=== PATIENT | female | born 1970 | race African-American/Black ===

== ENCOUNTER 2017-08-08 18:44 | Inpatient (IN) | payer SELFPAY ==
[2017-08-08] VITALS (7 sets, daily range): BP systolic 122–145; BP diastolic 68–80; PULSE 71–82; RESP 18–20; TEMP 97.1–98.1; O2SAT 97–100
[~2017-08-08] VITALS: Ht 160 cm; Wt 98.9 kg
[~2017-08-08 18:44] MED LIST: AMINOPHYLLINE INJ 250 MG/10 ML VIAL IV ONE
[2017-08-08] MEDS ORDERED: SODIUM CHLORIDE 0.9% FLUSH 10 ML FLUSH IVF PRN (19:00)
[2017-08-08 19:26] LABS: AUTOMATED NEUTROPHIL # 3.1 TH/MM3 (1.8-7.7); BASOPHIL % 0.7 % (0.0-2.0); EOSINOPHIL # 0.1 TH/MM3 (0-0.4); EOSINOPHIL % 1.3 % (0.0-4.0); HEMATOCRIT 38.3 % (35.0-46.0); HEMOGLOBIN 12.4 GM/DL (11.6-15.3); LYMPH % 48.7 % (9.0-44.0); LYMPHOCYTE # 3.5 TH/MM3 (1.0-4.8); MEAN CELL VOLUME 79.3 FL (80.0-100.0); MEAN CORPUSCULAR HEMOGLOBIN 25.6 PG (27.0-34.0); MEAN CORPUSCULAR HGB CONC 32.3 % (32.0-36.0); MEAN PLATELET VOLUME 8.1 FL (7.0-11.0); MONO % 4.8 % (0.0-8.0); MONOCYTE # 0.3 TH/MM3 (0-0.9); NEUT % 44.5 % (16.0-70.0); PLATELET COUNT 226 TH/MM3 (150-450); RED BLOOD COUNT 4.82 MIL/MM3 (4.00-5.30); RED CELL DISTRIBUTION WIDTH 13.2 % (11.6-17.2)
[2017-08-08 19:35] LABS: CHLORIDE 106 MEQ/L (98-107); SODIUM (NA) 141 MEQ/L (136-145)
[2017-08-08 19:38] LABS: ALBUMIN 3.6 GM/DL (3.4-5.0); BICARBONATE 29.6 MEQ/L (21.0-32.0); CALCIUM 8.6 MG/DL (8.5-10.1)
[2017-08-08 19:39] LABS: BLOOD UREA NITROGEN 15 MG/DL (7-18); GLUCOSE,RANDOM 121 MG/DL (74-106)
[2017-08-08 19:42] LABS: ALT (GPT) 43 U/L (10-53); AST (GOT) 28 U/L (15-37); CREATININE 0.72 MG/DL (0.50-1.00); GLOMERULAR FILTRATION RATE 86 ML/MIN (>89)
[2017-08-08 19:43] LABS: TOTAL BILIRUBIN ADULT 0.2 MG/DL (0.2-1.0); TOTAL PROTEIN 7.5 GM/DL (6.4-8.2)
[2017-08-08 19:44] LABS: ALKALINE PHOSPHATASE 127 U/L (45-117)
[2017-08-08 19:46] LABS: TROPONIN I LESS THAN 0.02 NG/ML (0.02-0.05)
--- NOTE | 2017-08-08 20:03 | RADRPT ---
EXAM DATE/TIME: 08/08/2017 19:29 [facility] COMPARISON: No previous studies available for comparison. INDICATIONS : Chest pain and shortness of breath. MEDICAL HISTORY : Hypercholesterolemia. Stroke. Arthritis, AV malformation. SURGICAL HISTORY : Hysterectomy. Tonsillectomy. ENCOUNTER: Initial ACUITY: 1 day PAIN SCORE: 8/10 LOCATION: Bilateral chest FINDINGS: A single view of the chest demonstrates the lungs to be symmetrically aerated without evidence of mas s, infiltrate or effusion. The cardiomediastinal contours are unremarkable. Osseous structures are intact. CONCLUSION: No acute disease. Doe Schmitz MD on August 08, 2017 at 20:01 Board Certified Radiologist. This report was verified electronically.
--- NOTE | 2017-08-08 20:08 | PD ---
HPI Chief Complaint: Chest Pain Time Seen by Provider: 18:52 Travel History International Travel<30 days: No Contact w/Intl Traveler<30days: No Traveled to known affect area: No History of Present Illness HPI This is a 47-year-old female who presents to the emergency department with left- sided chest discomfort that feels sharp and stabbing radiating to the left arm and some numbness in her arm associated with shortness of breath and nausea. She says she's been feeling this intermittently over the past week but today is been constant and much more severe. She's also been having intermittent headaches over the past week. She says last time she had chest pain like this she was diagnosed with a bleed from an AVM. She does have a history of prediabetes, a [id number] smoking history and she says her father had 3 open heart surgeries and of a myocardial infarction and she thinks his first heart attack was when he was in his 40s. She's never had a stress test before. PFSH Past Medical History Arthritis: Yes High Cholesterol: Yes Cerebrovascular Accident: Yes Diminished Hearing: No Neurologic: Yes (A-V malformation) Tetanus Vaccination: Unknown Influenza Vaccination: Yes ?: Not Past Surgical History Hysterectomy: Yes Tonsillectomy: Yes Social History Alcohol Use: No Tobacco Use: No Substance Use: No Allergies-Medications (Allergen,Severity, Reaction): Coded Allergies: clindamycin (Verified Allergy, Severe, FACIAL SWELLING, 08/08/17) Reported Meds & Prescriptions Reported Meds & Active Scripts Active No Active Prescriptions or Reported Medications Review of Systems Except as stated in HPI: all other systems reviewed are Neg Physical Exam Narrative GENERAL:Well appearing, no acute distress SKIN: Focused skin assessment warm and dry. HEAD: Atraumatic. Normocephalic. EYES: Pupils equal and round. No injection or drainage. ENT: Moist mucous membranes NECK: Trachea midline. CARDIOVASCULAR: Regular rate and rhythm. No murmur appreciated. RESPIRATORY: Clear to auscultation. Breath sounds equal bilaterally. GASTROINTESTINAL: Abdomen soft, non-tender, nondistended. MUSCULOSKELETAL: No obvious deformities. NEUROLOGICAL: Awake and alert. No obvious cranial nerve deficits. Moving all extremities. PSYCHIATRIC: Appropriate mood and affect; insight and judgment normal. Data Data Last Documented VS Vital Signs Date Time Temp Pulse Resp B/P (MAP) Pulse Ox O2 Delivery O2 Flow Rate FiO2 1/6/18 20:52 74 18 125/72 (89) 99 Room Air 08/08/17 18:46 98.1 Orders Orders Electrocardiogram (08/08/17 18:58) Complete Blood Count With Diff (08/08/17 18:58) Comprehensive Metabolic Panel (08/08/17 18:58) Troponin I (08/08/17 18:58) Chest, Single Ap (08/08/17 18:58) Ecg Monitoring (08/08/17 18:58) Bilateral Bp Monitoring (08/08/17 18:58) Iv Access Insert/Monitor (08/08/17 18:58) Oximetry (08/08/17 18:58) Oxygen Administration (08/08/17 18:58) Sodium Chloride 0.9% Flush (Ns Flush) (08/08/17 19:00) Ct Brain W/O Iv Contrast(Rout) (08/08/17 ) Admit Order (Ed Use Only) (08/08/17 21:04) Labs Laboratory Tests Test 08/08/17 19:17 White Blood Count 7.0 TH/MM3 Red Blood Count 4.82 MIL/MM3 Hemoglobin 12.4 GM/DL Hematocrit 38.3 % Mean Corpuscular Volume 79.3 FL Mean Corpuscular Hemoglobin 25.6 PG Mean Corpuscular Hemoglobin Concent 32.3 % Red Cell Distribution Width 13.2 % Platelet Count 226 TH/MM3 Mean Platelet Volume 8.1 FL Neutrophils (%) (Auto) 44.5 % Lymphocytes (%) (Auto) 48.7 % Monocytes (%) (Auto) 4.8 % Eosinophils (%) (Auto) 1.3 % Basophils (%) (Auto) 0.7 % Neutrophils # (Auto) 3.1 TH/MM3 Lymphocytes # (Auto) 3.5 TH/MM3 Monocytes # (Auto) 0.3 TH/MM3 Eosinophils # (Auto) 0.1 TH/MM3 Basophils # (Auto) 0.0 TH/MM3 CBC Comment DIFF FINAL Differential Comment Blood Urea Nitrogen 15 MG/DL Creatinine 0.72 MG/DL Random Glucose 121 MG/DL Total Protein 7.5 GM/DL Albumin 3.6 GM/DL Calcium Level 8.6 MG/DL Alkaline Phosphatase 127 U/L Aspartate Amino Transf (AST/SGOT) 28 U/L Alanine Aminotransferase (ALT/SGPT) 43 U/L Total Bilirubin 0.2 MG/DL Sodium Level 141 MEQ/L Potassium Level 3.4 MEQ/L Chloride Level 106 MEQ/L Carbon Dioxide Level 29.6 MEQ/L Anion Gap 5 MEQ/L Estimat Glomerular Filtration Rate 86 ML/MIN Troponin I LESS THAN 0.02 NG/ML MDM Medical Decision Making Medical Screen Exam Complete: Yes Emergency Medical Condition: Yes Interpretation(s) EKG: Normal sinus rhythm with no ST changes No leukocytosis Mild hypokalemia Troponin is normal Last 24 hours Impressions Chest X-Ray 08/08/17 1858 Signed Impressions: Service Date/Time: Tuesday, August 08, 2017 19:29 - CONCLUSION: No acute disease. Doe Schmitz MD Head CT 08/08/17 0000 Signed Impressions: Service Date/Time: Tuesday, August 08, 2017 19:39 - CONCLUSION: No acute disease. Doe Schmitz MD Differential Diagnosis Acute coronary syndrome, costochondritis, pericarditis, anxiety, GERD, AVM Narrative Course This is a 47-year-old female who has a history of prediabetes, smoking and family history of heart disease who presents to the emergency department with left-sided chest discomfort that's been going on intermittently for the past week and more constant today. EKG is nonischemic. She was placed in a monitor and an IV was established. Labs are reassuring. Patient also had concerned because the last time she felt this way she said she had intracranial hemorrhage from an AVM. CT was obtained which is unremarkable. I think given the patient's risk factors it's reasonable to keep her in observation for serial cardiac enzymes and risk stratification. Diagnosis Primary Impression: Atypical chest pain Admitting Information Admitting Physician Requests: Observation Scripts No Active Prescriptions or Reported Meds Lashonda Borjas MD Aug 08, 2017 20:08
--- NOTE | 2017-08-08 20:31 | RADRPT ---
EXAM DATE/TIME: 08/08/2017 19:39 [facility] COMPARISON: No previous studies available for comparison. INDICATIONS : Cephalgia. Shortness of breath. Left shoulder pain. Headache RADIATION DOSE: 61.10 CTDIvol (mGy) MEDICAL HISTORY : None SURGICAL HISTORY : Hysterectomy. ENCOUNTER: Initial ACUITY: 1 day PAIN SCALE: 8/10 LOCATION: cranial TECHNIQUE: Multiple contiguous axial images were obtained of the head. Using automated exposure control and adj ustment of the mA and/or kV according to patient size, radiation dose was kept as low as reasonably a chievable to obtain optimal diagnostic quality images. DICOM format image data is available electro nically for review and comparison. FINDINGS: CEREBRUM: The ventricles are normal for age. No evidence of midline shift, mass lesion, hemorrhage or acute in farction. No extra-axial fluid collections are seen. POSTERIOR FOSSA: The cerebellum and brainstem are intact. The 4th ventricle is midline. The cerebellopontine angle i s unremarkable. EXTRACRANIAL: The visualized portion of the orbits is intact. SKULL: The calvaria is intact. No evidence of skull fracture. CONCLUSION: No acute disease. Doe Schmitz MD on August 08, 2017 at 20:28 Board Certified Radiologist. This report was verified electronically.
[2017-08-08] MEDS ORDERED: REGADENOSON INJ 0.4 MG/5 ML SYR IV ONE (21:06)
[2017-08-08] MEDS ORDERED: SODIUM CHLORIDE 0.9% FLUSH 10 ML FLUSH IV FLUSH PRN (23:00)
[2017-08-08] MEDS ORDERED: ASPIRIN 81 MG CHEW TAB CHEW ONE (23:00)
[2017-08-08] MEDS: SODIUM CHLORIDE 0.9% FLUSH 10 ML FLUSH IV FLUSH SCH (23:18)
[2017-08-09] VITALS (9 sets, daily range): BP systolic 105–123; BP diastolic 62–85; PULSE 63–80; RESP 15–20; TEMP 97.1–97.8; O2SAT 95–99
[2017-08-09] MEDS ORDERED: ACETAMINOPHEN 500 MG CPLT PO PRN (07:15)
[2017-08-09] MEDS ORDERED: ONDANSETRON HCL 4 MG/2 ML VIAL IV PUSH PRN (07:15)
[2017-08-09] MEDS ORDERED: NITROGLYCERIN 0.4 MG SL 25 TABS/BTL SL PRN (07:15)
[2017-08-09 07:42] LABS: BICARBONATE 27.7 MEQ/L (21.0-32.0); CALCIUM 8.3 MG/DL (8.5-10.1)
[2017-08-09 07:46] LABS: CREATININE 0.69 MG/DL (0.50-1.00)
[2017-08-09] MEDS: ASPIRIN 325 MG TAB PO SCH (09:00)
[2017-08-09] MEDS: SODIUM CHLORIDE 0.9% FLUSH 10 ML FLUSH IV FLUSH SCH ×2 (09:00→21:28)
[2017-08-09 09:21] LABS: CHOLESTEROL/ HDL RATIO 3.14 RATIO
--- NOTE | 2017-08-09 10:00 | HHI.HP ---
[facility] Angi Brian M.D. Admission Diagnosis chest pain Diagnoses: (1) Atypical chest pain Diagnosis: Principal Chief Complaint: Chest pain Travel History International Travel<30 Days: No Contact w/Intl Traveler <30 Da: No Traveled to Known Affected Are: No History of Present Illness This is a 47-year-old female with known history of hyperlipidemia, chronic arthritic pain, history of AVM with hemorrhagic CVA, Chiari I malformation, prediabetes who presented to hospital because of chest discomfort. Patient states that yesterday afternoon she started noticing a pressure type sensation in the middle part of her chest which she describes as a 5/10 on a pain scale which was continuous and continue to get worse. Patient states that it was same type of pain that she was having when she was diagnosed with her first AVM with CVA. Because of that reason she came to emergency department for evaluation. Patient does have chronic shoulder pain, chronic shortness of breath, so it was difficult for her to determine if her pain radiating to her shoulder or if she actually had worsening shortness of breath or dyspnea. However she had no diaphoresis, there was some mild nausea without any vomiting. Patient had workup done emergency department without any abnormality. The ER physician recommended the patient be observed in the chest pain center. Patient has not been given any medication to see if the pain would resolve. However the patient is asymptomatic at this time. 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 Father had first heart attack at age 50, had 3 bypass surgeries and at age 72 Social History Patient quit smoking 3 years ago, prior to that she smoked 2 pack a cigarettes a day since she was 15 years old. She uses alcohol rarely. Denies any illicit drug use Physical Exam Vital Signs Vital Signs Date Time Temp Pulse Resp B/P (MAP) Pulse Ox O2 Delivery O2 Flow Rate FiO2 08/09/17 08:28 97.5 63 15 111/64 (80) 99 08/09/17 07:30 98 21 08/09/17 04:00 97.1 63 20 112/62 (79) 97 08/09/17 00:00 97 21 08/08/17 23:00 97.1 79 20 127/70 (89) 97 08/08/17 22:53 74 18 98 08/08/17 22:13 72 18 126/68 (87) 99 Room Air 08/08/17 20:52 74 18 125/72 (89) 99 Room Air 08/08/17 19:27 76 18 99 Room Air 08/08/17 19:27 76 18 123/68 (86) 99 Room Air 08/08/17 19:25 71 123/68 (86) 122/75 (91) 08/08/17 19:00 100 Room Air 08/08/17 19:00 100 08/08/17 18:46 98.1 82 18 145/80 (101) 100 Physical Exam GENERAL: Well-developed, well-nourished, in no acute distress. alert and orientated HEENT: Head is normocephalic without any lesions or masses noted. Facial features are symmetric. Eyes: Pupils equal round reactive to light. Extraocular muscles are intact. Conjunctivae were clear. Oropharyngeal: Pharynx without any erythema edema. Tongue is midline without deviation. Buccal mucosa is moist without any masses or lesions NECK: Supple without any masses. Trachea midline no deviation. No JVD, no bruits are appreciated CARDIAC: Regular rhythm, regular rate. S1/S2 are heard. No murmurs gallops or rubs. LUNGS: Clear to auscultation bilaterally. No wheeze, rhonchi or rales. No use of accessory muscles on inspiration or expiration. ABDOMEN: Soft, nontender. Nondistended. Bowel sounds heard in all 4 quadrants. No organomegaly or masses. Negative rebound, negative guarding EXTREMITIES: No edema, pulses are equal bilaterally. No cyanosis or clubbing NEUROLOGY: Mood and affect appear appropriate. Cranial nerves II through XII grossly intact. Muscle strength 5/5 in upper and lower extremities bilaterally. Deep tendon reflexes are 2+ in upper and lower extremities bilaterally. Laboratory Laboratory Tests Test 08/08/17 19:17 08/09/17 00:00 08/09/17 02:25 08/09/17 07:26 White Blood Count 7.0 Red Blood Count 4.82 Hemoglobin 12.4 Hematocrit 38.3 Mean Corpuscular Volume 79.3 Mean Corpuscular Hemoglobin 25.6 Mean Corpuscular Hemoglobin Concent 32.3 Red Cell Distribution Width 13.2 Platelet Count 226 Mean Platelet Volume 8.1 Neutrophils (%) (Auto) 44.5 Lymphocytes (%) (Auto) 48.7 Monocytes (%) (Auto) 4.8 Eosinophils (%) (Auto) 1.3 Basophils (%) (Auto) 0.7 Neutrophils # (Auto) 3.1 Lymphocytes # (Auto) 3.5 Monocytes # (Auto) 0.3 Eosinophils # (Auto) 0.1 Basophils # (Auto) 0.0 CBC Comment DIFF FINAL Differential Comment Blood Urea Nitrogen 15 12 Creatinine 0.72 0.69 Random Glucose 121 94 Total Protein 7.5 Albumin 3.6 Calcium Level 8.6 8.3 Alkaline Phosphatase 127 Aspartate Amino Transf (AST/SGOT) 28 Alanine Aminotransferase (ALT/SGPT) 43 Total Bilirubin 0.2 Sodium Level 141 142 Potassium Level 3.4 3.8 Chloride Level 106 109 Carbon Dioxide Level 29.6 27.7 Anion Gap 5 5 Estimat Glomerular Filtration Rate 86 110 Troponin I LESS THAN 0.02 LESS THAN 0.02 LESS THAN 0.02 Triglycerides Level 54 Cholesterol Level 195 LDL Cholesterol 122 HDL Cholesterol 62.0 Cholesterol/HDL Ratio 3.14 Result Diagram: 08/08/177 08/09/17 0726 Imaging Last Impressions Chest X-Ray 08/08/17 1858 Signed Impressions: Service Date/Time: Tuesday, August 08, 2017 19:29 - CONCLUSION: No acute disease. Doe Schmitz MD Head CT 08/08/17 0000 Signed Impressions: Service Date/Time: Tuesday, August 08, 2017 19:39 - CONCLUSION: No acute disease. Doe F. Nadir, MD Caprini VTE Risk Assessment Caprini VTE Risk Assessment: No/Low Risk (score <= 1) Caprini Risk Assessment Model Point Value = 1 Point Value = 2 Point Value = 3 Point Value = 5 Age 41-60 Minor surgery BMI > 25 kg/m2 Swollen legs Varicose veins or History of unexplained or recurrent spontaneous Oral contraceptives or hormone replacement Sepsis (< 1 month) Serious lung disease, including pneumonia (< 1 month) Abnormal pulmonary function Acute myocardial infarction Congestive heart failure (< 1 month) History of inflammatory bowel disease Medical patient at bed rest Age 61-74 Arthroscopic surgery Major open surgery (> 45 min) Laparoscopic surgery (> 45 min) Malignancy Confined to bed (> 72 hours) Immobilizing plaster cast Central venous access Age >= 75 History of VTE Family history of VTE Factor V Leiden Prothrombin [id number] Lupus anticoagulant Anticardiolipin antibodies Elevated serum homocysteine Heparin-induced thrombocytopenia Other congenital or acquired thrombophilia Stroke (< 1 month) Elective arthroplasty Hip, pelvis, or leg fracture Acute spinal cord injury (< 1 month) Prophylaxis Regimen Total Risk Factor Score Risk Level Prophylaxis Regimen 0-1 Low Early ambulation 2 Moderate Order ONE of the following: *Sequential Compression Device (SCD) *Heparin 5000 units SQ BID 3-4 Higher Order ONE of the following medications: *Heparin 5000 units SQ TID *Enoxaparin/Lovenox 40 mg SQ daily (WT < 150 kg, CrCl > 30 mL/min) *Enoxaparin/Lovenox 30 mg SQ daily (WT < 150 kg, CrCl > 10-29 mL/min) *Enoxaparin/Lovenox 30 mg SQ BID (WT < 150 kg, CrCl > 30 mL/min) AND/OR *Sequential Compression Device (SCD) 5 or more Highest Order ONE of the following medications: *Heparin 5000 units SQ TID (Preferred with Epidurals) *Enoxaparin/Lovenox 40 mg SQ daily (WT < 150 kg, CrCl > 30 mL/min) *Enoxaparin/Lovenox 30 mg SQ daily (WT < 150 kg, CrCl > 10-29 mL/min) *Enoxaparin/Lovenox 30 mg SQ BID (WT < 150 kg, CrCl > 30 mL/min) AND *Sequential Compression Device (SCD) Assessment and Plan Assessment and Plan Chest pain, atypical Patient with increased risk factors to include history tobacco use, family history of heart disease, hyperlipidemia Patient had been ruled out for acute coronary event with serial cardiac enzymes that are negative Serial EKGs were performed which shows sinus rhythm without any changes Patient states that she is unable to perform exercise stress test due to previous CVA, feet problems Nuclear stress test does indicate reversible defect involving the cardiac apex suggesting LAD ischemia. Low risk, ejection fraction 60% Continue aspirin, nitroglycerin as needed Start Lopressor 12.5 mg every 12 hours Start Nitropaste half-inch every 6 hours Consult cardiology for recommendations, discussed with Dr. Santos to recommended patient be transferred to the [facility] for cardiac catheterization Did not recommend heparin at this time Hyperlipidemia LDL 122 Start Lipitor 20 mg daily DVT prevention sequential compression devices Randal Rausch Aug 09, 2017 10:00
--- NOTE | 2017-08-09 13:18 | RADRPT ---
EXAM DATE/TIME: 08/09/2017 11:36 [facility] COMPARISON: No previous studies available for comparison. INDICATIONS : Chest pain. Angina. DOSE: 27.3 mCi Tc99m Myoview at stress. 8.6 mCi Tc99m Myoview at rest. 0.4 mg Lexiscan STRESS SYMPTOMS: Dyspnea and headache. MEDICATIONS: 1.) 100 mg Aminophylline IV EJECTION FRACTION: 68% MEDICAL HISTORY : Cerebrovascular disease. Hypercholesterolemia. AVM. SURGICAL HISTORY : Tonsillectomy. Hysterectomy. ENCOUNTER: Initial ACUITY: 1 day PAIN SCALE: 0/10 LOCATION: Bilateral chest TECHNIQUE: The patient underwent pharmacologic stress with infusion of prescribed dose. Continuous ECG tracing was monitored during stress. Gated SPECT imaging was performed after stress and conventional SPECT i maging was performed at rest. The examination was performed on a SPECT/CT scanner, both attenuation and non-corrected datasets were reviewed. FINDINGS: The gated cineloop images demonstrate no focal wall motion on room air. Left ventricular ejection fra ction is calculated at 60%. There is evidence of reversible defect involving the cardiac apex suggesting ischemia in the LAD dist ribution. Clinical correlation is recommended. No fixed defects are noted. CONCLUSION: 1. Reversible defect involving the cardiac apex suggesting LAD ischemia. Clinical correlation is yossi mmended. 2. No fixed defect or wall motion abnormality. RISK CATEGORY: Low risk (less than 1% and mortality rate). Mal Musa MD on August 09, 2017 at 13:13 Board Certified Radiologist. This report was verified electronically.
--- NOTE | 2017-08-09 14:01 | EKG ---
Date Performed: 08/08/2017 Time Performed: 18:49:54 PTAGE: 47 years EKG: Sinus rhythm WITH SINUS ARRHYTHMIA NORMAL ECG NO PREVIOUS TRACING DOCTOR: Shayan Irvin Interpretating Date/Time 08/09/2017 14:00:49
--- NOTE | 2017-08-09 14:03 | EKG ---
Date Performed: 08/08/2017 Time Performed: 23:55:05 PTAGE: 47 years EKG: Marked baseline interference seen in leads I, II and V5 makes interpretation impossible in these leads Sinus rhythm present Recommend repeat tracing of better quality for better interpretation PREVIOUS TRACING : 08/08/2017 18.49 DOCTOR: Shayan Irvin Interpretating Date/Time 08/09/2017 14:02:44
--- NOTE | 2017-08-09 14:05 | EKG ---
Date Performed: 08/09/2017 Time Performed: 02:04:33 PTAGE: 47 years EKG: Sinus rhythm NORMAL ECG PREVIOUS TRACING : 08/08/2017 23.55 Compared to prior tracing no significant change DOCTOR: Shayan Irvin Interpretating Date/Time 08/09/2017 14:03:48
[2017-08-09] MEDS ORDERED: PILL SPLITTER OTHER PRN (14:15)
--- NOTE | 2017-08-09 14:42 | TR ---
Date Performed: 08/09/2017 Time Performed: 12:11:37 DOCTOR: Shayan Irvin DRUG LIST: CLINICAL HISTORY: REASON FOR TEST: REASON FOR ENDING: OBSERVATION: CONCLUSION: Lexiscan stress test was performed under standard four minute protocol. Radionuclid e was injected one minute prior to ending the test. No electrocardiographic abormalities were present to suggest ischemia. Nuclear imaging and interpretation are pending. COMMENTS:
[2017-08-09] MEDS: METOPROLOL TARTRATE 25 MG TAB PO SCH ×2 (16:07→21:28)
[2017-08-09] MEDS: NITROGLYCERIN 2% OINT 1 GM PACKET TOPICAL SCH ×3 (16:07→23:01)
[2017-08-09] MEDS: ACETAMINOPHEN/HYDROcodone 325 MG/7.5 MG TAB PO PRN (16:07)
[2017-08-09] MEDS ORDERED: ATORVASTATIN 20 MG TAB PO SCH (21:00)
[2017-08-10] VITALS (18 sets, daily range): BP systolic 88–114; BP diastolic 53–74; PULSE 56–72; RESP 16–20; TEMP 97.6–98; O2SAT 94–98
[2017-08-10] MEDS: ACETAMINOPHEN/HYDROcodone 325 MG/7.5 MG TAB PO PRN (00:13)
[2017-08-10] MEDS: NITROGLYCERIN 2% OINT 1 GM PACKET TOPICAL SCH ×3 (00:14→12:00)
[2017-08-10] MEDS: METOPROLOL TARTRATE 25 MG TAB PO SCH (09:00)
[2017-08-10] MEDS: SODIUM CHLORIDE 0.9% FLUSH 10 ML FLUSH IV FLUSH SCH (09:00)
[2017-08-10] MEDS ORDERED: HEPARIN-NS/PF INJ 1,000 ML ONE (09:00)
[2017-08-10] MEDS: ASPIRIN 325 MG TAB PO SCH (09:00)
[2017-08-10] MEDS ORDERED: MIDAZOLAM HCL 2 MG/2 ML VIAL ONE (09:01)
--- NOTE | 2017-08-10 09:12 | PD.CONS ---
HPI Consult Requested By Primary Care Physician Angi Brian M.D. History of Present Illness 47-year-old female with known history of hyperlipidemia, chronic arthritic pain , history of AVM with hemorrhagic CVA, Chiari I malformation, prediabetes who presented to hospital because of chest discomfort. Patient states that yesterday afternoon she started noticing a pressure type sensation in the middle part of her chest which she describes as a 5/10 on a pain scale which was continuous and continue to get worse. Patient does have chronic shoulder pain, chronic shortness of breath, so it was difficult for her to determine if her pain radiating to her shoulder or if she actually had worsening shortness of breath or dyspnea. She ruled out by cardiac markers. MPI was positive for ischemia in the LAD territory. Cardiology consulted for [facility]. Review of Systems Consitutional: DENIES: Fatigue, Fever, Chills, Weight gain, Weight loss Eyes: DENIES: Amaurosis Fugax, Change in vision HEENT: DENIES: Lightheadedness, Change in hearing Respiratory: DENIES: See HPI, Cough, Snoring, Shortness of breath, Wheezing, Sputum production Cardiovascular: COMPLAINS OF: See HPI, DENIES: Chest pain, Palpitations, Syncope, Tachycardia Gastrointestinal: DENIES: Nausea, Vomiting, Change in bowel habits, Reflux, Bloody stools, Melena Genitourinary: DENIES: Urinary incontinence, Difficulty voiding Integumentary: DENIES: Rash Neurologic: DENIES: Tingling or numbness, Memory problems, Poor Balance, Stroke symptoms Musculoskeletal: DENIES: Joint pain, Muscle pain, Limited range of motion, Back pain Psychiatric: DENIES: Anxiety, Depression, Sleep disturbances Hematologic: DENIES: Bruising tendencies, Bleeding tendencies Endocrine: DENIES: Weight gain, Weight loss, Thyroid disease Past Family Social History Allergies: Coded Allergies: clindamycin (Verified Allergy, Severe, FACIAL SWELLING, 08/08/17) Past Medical History Hyperlipidemia Chiari I malformation History of hemorrhagic CVA from AVM Past Surgical History Hysterectomy Carpal tunnel surgery Tarsal tunnel surgery Tennis elbow surgery Tonsillectomy Reported Medications Reported Meds & Active Scripts Active No Active Prescriptions or Reported Medications Active Ordered Medications Current Medications Medications (Trade) Dose Ordered Sig/Lela Route Start Time Stop Time Status Last Admin (NS Flush) 2 ml UNSCH PRN IV FLUSH 08/08/17 23:00 (NS Flush) 2 ml BID IV FLUSH 08/08/17 23:00 08/09/17 21:28 (Tylenol) 500 mg Q4H PRN PO 08/09/17 07:15 ([place] 7.5-325 Mg) 1 tab Q4H PRN PO 08/09/17 07:15 08/10/17 00:13 (Zofran Inj) 4 mg Q6H PRN IV PUSH 08/09/17 07:15 (Nitrostat Sl) 0.4 mg Q5M PRN SL 08/09/17 07:15 (Aspirin) 325 mg DAILY PO 08/09/17 09:00 (Lipitor) 20 mg HS PO 08/09/17 21:00 08/09/17 21:29 (Lopressor) 12.5 mg Q12HR PO 08/09/17 14:30 08/09/17 21:28 (Nitroglycerin 2% Oint) 0.5 inch Q6HR TOPICAL 08/09/17 14:30 08/10/17 00:14 (Pill Splitter) 1 ea UNSCH PRN OTHER 08/09/17 14:15 Family History Reviewed is significant for heart disease. Father had first heart attack at age 50, had 3 bypass surgeries and at age 72 Social History Patient quit smoking 3 years ago, prior to that she smoked 2 pack a cigarettes a day since she was 15 years old. She uses alcohol rarely. Denies any illicit drug use Physical Exam Vital Signs Vital Signs Date Time Temp Pulse Resp B/P (MAP) Pulse Ox O2 Delivery O2 Flow Rate FiO2 08/10/17 07:32 98.0 64 20 105/74 (84) 94 08/10/17 06:40 59 08/10/17 05:00 62 08/10/17 04:24 97.9 56 88/53 (65) 98 08/10/17 04:00 56 08/10/17 03:00 58 08/10/17 02:00 64 08/10/17 01:00 62 08/10/17 00:00 64 08/10/17 00:00 97.6 71 105/68 (80) 95 08/09/17 23:30 80 08/09/17 23:00 74 08/09/17 20:00 97.8 63 16 105/70 (82) 95 08/09/17 19:40 95 21 08/09/17 16:00 97.5 79 16 123/85 (98) 99 Physical Exam GENERAL: Well-nourished, well-developed patient. SKIN: Warm and dry. HEAD: Normocephalic. EYES: No scleral icterus. No injection or drainage. NECK: Supple, trachea midline. No JVD or lymphadenopathy. CARDIOVASCULAR: Regular rate and rhythm without murmurs, gallops, or rubs. RESPIRATORY: Breath sounds equal bilaterally. No accessory muscle use. GASTROINTESTINAL: Abdomen soft, non-tender, nondistended. EXTREMITIES: No cyanosis, or edema. NEUROLOGICAL: Awake, alert, and oriented x 3. Non-focal. Result Diagram: 08/08/17 1917 08/09/17 0726 Imaging Last Impressions Myocardial Perfusion Scan Nuc Med 08/09/17 0000 Signed Impressions: Service Date/Time: Wednesday, August 09, 2017 11:36 - CONCLUSION: 1. Reversible defect involving the cardiac apex suggesting LAD ischemia. Clinical correlation is recommended. 2. No fixed defect or wall motion abnormality. RISK CATEGORY : Low risk (less than 1%% and mortality rate). Mal Musa MD Chest X-Ray 08/08/17 1858 Signed Impressions: Service Date/Time: Tuesday, August 08, 2017 19:29 - CONCLUSION: No acute disease. Doe Schmitz MD Head CT 08/08/17 0000 Signed Impressions: Service Date/Time: Tuesday, August 08, 2017 19:39 - CONCLUSION: No acute disease. Doe Schmitz MD Assessment and Plan Problem List: (1) Atypical chest pain ICD Codes: R07.89 - Other chest pain Status: Acute Plan: Atypical Chest Pain. Positive stress test suggestive of ischemia. C recommended. Risk benefits including but not limited to bleeding, neurovascular trauma, PACO, stroke, emergent CABG and explained to patient. She understands risk and is willing to proceed. Recommendations: Keep NPO for LHC today Joel Wallace MD Aug 10, 2017 09:12
--- NOTE | 2017-08-10 09:48 | CATHPROC ---
[facility] HIS Report Study Information Study Number Admission Scheduled Start Study Start [id number] Aug 08 2017 9:05PM 08/10/2017 Aug 10 2017 8:11AM [place] Service Cardiac Catheterization Admit Source Facility Department Emergency department [facility] - Picker Tender Physician and Clinical Staff Initial Joel Andrade Library Science Instructor Caren Tiwari BSN Recorder Blake Jackson,RT(R) ScrPushpa Parkinson,RT(R) (BS) Procedures Performed Procedure Location (Site) Vessel Name Coronary Angiograms LCA Left Coronary LV Gram-hand inj. LV LV Ventricle Equipment Time Naval Architect Specialist Description Size Mfg Part Number Used/Scraped TRANSDUCER, TRUWAVE [id number] 09:06 BERNARD PICKETT * Used W/RODRIGOCK *[id number] 09:33 [employer] MEDICAL VASCADE, FR5 CLOSURE SYSTEM FR 5 Used *[id number] INTRODUCER SET, 09:06 [employer] FR 5 [id number] *[id number] Used MICROPUNCTURE, STIFFENED [id number] *[id number] *[id number] 09:06 [employer] PACK, CCL CUSTOM * Used *[id number] 09:18 [employer] JL 4.0 DXTERITY CATHETER FR 5 Used *[id number] 09:06 [employer] WIRE, 3MMJ .035 180CM 180CM Used *[id number] 09:06 NAMIC MANIFOLD, 4 PORT * Used *[id number] 09:06 [employer]COMED OMNIPAQUE, 350 MG, 150ML 150ML [id number] Used [id number] 09:06 [facility] BLANKET,WARM AIR CCL * Used *[id number] 09:06 TERUMO MEDICAL SHEATH, FR5 TERUMO (10CM) FR 5 Used *[id number] Equipment Model, Serial, Lot Number and Expiration Data Description Model Number Serial Number Lot Number Expiration Date JL 4.0 DXTERITY CATHETER [id number] 03-04-2020 History: Allergies Allergy Reaction clindamycin FACIAL SWELLING History: Risk Factors Family History of Hypertension Dyslipidemia Previous PA Previous Heart Failure Premature CAD No Yes Yes No No Prior Valve Prior PCI Prior CABG Surgery No No No Cerebrovascular Peripheral Artery Chronic Lung On Dialysis Diabetes Disease Disease Disease No Yes No No No History: Stress Tests Stress or Imaging Studies Performed Yes Standard Exercise Stress Test No Stress Echo No Stress Test SPECT Stress Test SPECT Result Stress Test SPECT Ischemia Risk/Extent Yes Positive Intermediate Stress Test CMR No Cardiac CTA Coronary Calcium Score No No History: Other Current Smoker Method Quit Packs a Day Years Used Pack Years No Cigarettes 3 Years Ago 2 30 60 Labs Hgb (g/dl) Hct (%) WBC (l/cumm) Platelets (thousands) 11.60-17.00 35.00-51.00 4.00-11.00 150.00-450.00 12.4 38.3 7 226 Glucose (mg/dl) BUN (mg/dl) Creatinine (mg/dl) BUN:Creatinine (1:x) 74.00-106.00 7.00-18.00 0.50-1.30 10.00-20.00 94 12 0.6 20 Na (meq/l) K (meq/l) 136.00-145.00 3.50-5.10 142 3.8 Troponin I (ng/ml) CPK-MB (ng/ML) 0.02-0.05 0.50-3.60 0.02 Not Drawn Medication Medication Total Dose (Bolus/Oral) Medication Total Dosage/Unit 1% XYLOCAINE 20 mL FENTANYL 100 mcg VERSED 2 mg Medications (Bolus/Oral) Medication Time Given Dosage/Unit Administered By Reason VERSED 08/10/2017 9:15:38 AM 2 mg Caren Tiwari 2 mg VERSED given in lab by Caren Tiwari BSN via Peripheral IV. Ordered by Joel Wallace. 1% XYLOCAINE 08/10/2017 9:16:32 AM 20 mL Joel Wallace Patient arrived on 20 mL 1% XYLOCAINE given by Joel Wallace in Right Groin via Subcutaneous. FENTANYL 08/10/2017 9:16:55 AM 50 mcg Caren Tiwari 50 mcg FENTANYL given in lab by Caren Tiwari BSN via Peripheral IV. Ordered by Karel Wallace. FENTANYL 08/10/2017 9:19:30 AM 25 mcg Caren iTwari 25 mcg FENTANYL given in lab by Caren Tiwari BSN via Peripheral IV. Ordered by Karel Wallace. FENTANYL 08/10/2017 9:34:23 AM 25 mcg Caren Tiwari 25 mcg FENTANYL given in lab by Caren Tiwari BSN via Peripheral IV. Ordered by Karel Wallace. Medication (Drip) Medication Time Given Dosage/Unit Concentration/Unit Diluent (ml) Solutio n IV Solutions 08/10/2017 9:00:51 AM 0 mL (IV) 500 NaCl .9 Patient arrived on IV Solutions in Right Wrist via Peripheral IV. Pump/Drip Flow = 20 ml/hr using NaC l .9. Final Case Assessment Cardiovascular HR Rhythm Chest Pain 60 sr 0 Edema Present Skin color Skin None Normal Warm Dry Circulatory - Right Pulses Dorsalis Pedis Femoral 2 2 Scale (0,1,2,3,4,d) Circulatory - Left Pulses Dorsalis Pedis Femoral 2 2 Scale (0,1,2,3,4,d) Neurological State Oriented to time-place- Alert Moves all extremities person Respiration - General Respiration Rate SpO2 (%) O2 (lpm) (B/min) 18 99 0 Initial Case Assessment Cardiovascular HR Rhythm NIBP Chest Pain 55 sr 112/74 0 Edema Present Skin color Skin None Normal Warm Dry Circulatory - Right Pulses Dorsalis Pedis Femoral 2 2 Scale (0,1,2,3,4,d) Circulatory - Left Pulses Dorsalis Pedis Femoral 2 2 Scale (0,1,2,3,4,d) Chronological Log Time Study Chronological Log 8:54:14 Patient arrived via Bed. 8:54:15 Patient Name, D.O.B, / Armband Verified By R.N. 8:54:17 Consent signed by the physician and the patient and verified by the Picker Tender staff. 8:54:18 Pre-op and post- op instructions given; patient acknowledges understanding of instructions. 8:59:17 Verbal Stimulation=2 Physical Stimulation=2 Airway=2 Respiration=1 TOTAL=8. (0=absent, 1=villegas ited, 2=present) 8:59:32 Presedation assessment performed by Picker Tender RN. 8:59:34 Patient has been NPO for More than 6Hrs. 8:59:35 Skin Breakdown-none present per patient. 9:00:23 Patient Warmer Placed on the Table. 9:00:38 A # 20 IV was noted in the Wrist (right). Grade = 0 9:00:51 Patient arrived on IV Solutions in Right Wrist via Peripheral IV. Pump/Drip Flow = 20 ml/hr using NaCl .9. 9:01:31 History and physical on the chart or being dictated. 9:01:33 Reference ECG taken Vitals capture started with the following parameters, Patient=Adult, Interval=5 min, Initial Pre vqoti=421 mmHg, 9:01:35 Deflation Rate=5 mmHg, Cuff placed on Left Arm 9:02:12 HR=57 bpm, QHGM=861/74 mmhg, SpO2=96.0 %, Resp=7 B/min, Bourgeois=2 Assessment: Initial Case, HR=55 BPM, Rhythm=sr, CDYQ=639/74 mmhg, Chest Pain=0, Edema=None, [place] r=Normal, Skin = Warm, Dry 9:03:57 Right Pulses: Jamie Ped=2, Femoral=2 Left Pulses: Jamie Ped=2, Femoral=2 9:05:21 Bilateral groins prepped with 2% chlorhexidine, and draped after a 3 minute waiting time. 9:07:11 HR=59 bpm, AFAO=958/75 mmhg, SpO2=97.0 %, Resp=4 B/min, Bourgeois=2 9:10:39 MD paged 9:12:16 HR=55 bpm, NLRM=502/68 mmhg, SpO2=96.0 %, Resp=12 B/min, Bourgeois=2 9:12:49 Pressure channel 1 zeroed. 9:15:38 2 mg VERSED given in lab by Caren Tiwari BSN via Peripheral IV. Ordered by Joel Martinez. Time Out. Correct patient, correct procedure, correct physician, power injector not loaded with contrast with surgical 9:15:59 team present. Time Out Concurred by MD and individual staff in procedure. Not loaded at this soy e. 9:16:22 Case Start 9:16:24 Verbal Stimulation=2 Physical Stimulation=2 Airway=2 Respiration=2 TOTAL=8. (0=absent, 1=villegas ited, 2=present) 9:16:32 Patient arrived on 20 mL 1% XYLOCAINE given by Joel Wallace in Right Groin via Subcutan eous. 9:16:55 50 mcg FENTANYL given in lab by Caren Tiwari BSN via Peripheral IV. Ordered by Joel Bird. 9:17:46 HR=61 bpm, IOOC=389/69 mmhg, SpO2=86.0 %, Resp=14 B/min, Bourgeois=2 9:19:30 25 mcg FENTANYL given in lab by Caren Tiwari BSN via Peripheral IV. Ordered by Joel Bird. 9:21:18 Access site was Right Femoral Artery. A INTRODUCER SET, MICROPUNCTURE, STIFFENED FR 5 was advanced into the Fem Art (right) using the 9:21:25 Percutaneous technique. 9:22:10 HR=64 bpm, RXHB=385/74 mmhg, Resp=10 B/min, Bourgeois=2 A SHEATH, FR5 TERUMO (10CM) FR 5 was exchanged in the Fem Art (right). This was necessary in ord er to 9:23:14 accomodate a larger catheter. A JR 4.0 INFINITI CATHETER FR 5 was advanced over a wire. OMNIPAQUE, 350 MG, 150ML 150ML was use d for 9:24:12 injections. Recorded Pressure: LV, HR=58, Condition=Condition 1 9:25:14 (Left Ventricle) LV 100/8/17 9:25:24 The LV was manually injected with 10 cc's and visualized. OMNIPAQUE, 350 MG, 150ML 150ML use d. Recorded Pressure: LV, Ao, HR=64, Condition=Condition 1 9:25:28 (Left Ventricle) LV 100/7/15, (Aorta) Ao 109/69/87 Recorded Pressure: Ao, HR=65, Condition=Condition 1 9:25:50 (Aorta) Ao 108/69/88 9:27:11 HR=59 bpm, OLMM=899/78 mmhg, Resp=5 B/min, Bourgeois=2 After removing the current catheter a AR MOD INFINITI CATHETER FR 5 was advanced over a WIRE, 3 MMJ .035 180CM 9:29:57 180CM. 9:30:58 Catheter was removed A JL 4.0 DXTERITY CATHETER FR 5 was advanced over a wire. OMNIPAQUE, 350 MG, 150ML 150ML was us ed for 9:30:59 injections. 9:32:10 HR=66 bpm, IOYQ=856/68 mmhg, Resp=6 B/min, Bourgeois=2 9:32:18 The LCA was injected and visualized at various angles. OMNIPAQUE, 350 MG, 150ML 150ML used . 9:32:54 Catheter was removed 9:33:05 Case End 9:34:23 25 mcg FENTANYL given in lab by Caren Tiwari BSN via Peripheral IV. Ordered by Joel Panchal. 9:35:40 VASCADE, FR5 CLOSURE SYSTEM FR 5 placement in the Fem Art (right) 9:37:05 Catheter(s) removed without difficulty Assessment: Final Case, HR=60 BPM, Rhythm=sr, Chest Pain=0, Edema=None, Color=Normal, Skin = Wa rm, Dry Right Pulses: Jamie Ped=2, Femoral=2 9:37:12 Left Pulses: Jamie Ped=2, Femoral=2 Neurological: State=Alert, Ox3, [place] Respiration: Resp=18 B/min, SpO2=99 %, O2=0 lpm 9:37:48 HR=60 bpm, QNXL=844/62 mmhg, SpO2=94.0 %, Resp=8 B/min, Bourgeois=2 9:40:28 Sterile dressing applied to site 9:40:30 No case complications noted. 9:40:32 Cine recording checked. 9:40:35 Bedside Report will be given. 9:40:38 Implantable Device card placed in patient's chart. 9:40:41 Contrast Scanned 9:42:14 HR=59 bpm, FPSJ=548/62 mmhg, Resp=9 B/min, Bourgeois=2 9:47:11 HR=60 bpm, UXAL=871/69 mmhg, Resp=13 B/min, Bourgeois=2 9:47:43 Vitals capture stopped. 9:47:[address] [facility] End Study - Contrast Media Used In Study Contrast Total Opened (mL) Total Used (mL) Total Wasted (mL) Omnipaque 65 65 0 End Study - Maximum Contrast Load Max Contrast Load (mL) 824.2 End Study - Radiation Exposure Fluoro Time (minutes) 6.5 End Study - Patient Disposition Complications Transferred To Telemetry Bed
--- NOTE | 2017-08-10 10:02 | MA ---
cc: MARTHA LEBLANC DATE: 08/10/2017 1970 PROCEDURE PERFORMED 1. Left heart catheterization. 2. Selective right and left coronary angiography. 3. Left ventricle hemodynamics for selective right common femoral artery angiography. INDICATION Chest pain. Positive stress test. APPROACH Right transfemoral. DESCRIPTION OF PROCEDURE Consent signed. The patient was brought into the cardiac asphalt plant laborer in fasting state. The right groin was prepped and draped in sterile fashion using 1% lidocaine for local anesthesia and a micropuncture kit. A 5-Welsh sheath was inserted into the right common femoral artery. Right common femoral artery angiography was performed to confirm position of the sheath. Then selective right and left coronary angiography was performed with a JR-4 and JL-4 diagnostic catheters. Angiography was taken in multiple views. The JR-4 was introduced to the ventricle over a wire. This was followed by pressure recordings and pullback. All catheters were exchanged over a wire. The patient tolerated the procedure without complications. Estimated blood loss less than 10 ccs. Total contrast 65 ccs. The right groin access site was closed with a Vascade closure device. RESULTS LEFT VENTRICLE The left ventricular pressure was 100/7 with an LVEDP of 15. The aortic pressure was 108/69 with a mean of 88. There was no gradient upon pullback from the left ventricle to the aorta. ANGIOGRAPHY 1. The right coronary artery is a dominant vessel giving off the PDA, is small , patent with HARRIETT III flow. 2. The left main is patent with HARRIETT III flow, was giving off the LAD, the left circumflex and the ramus. 3. The LAD is a transapical vessel, has minimal luminal irregularities throughout, 10% lesion in the proximal portion, is giving off two small diagonal arteries. 4. The left circumflex artery is giving off two OM vessels which are patent with HARRIETT III flow. The body of the left circumflex artery has nonobstructive coronary artery disease. 5. The ramus vessel is patent, small with HARRIETT III flow, nonobstructive coronary artery disease. CONCLUSION Nonobstructive coronary artery disease, minimally elevated LVEDP. RECOMMENDATIONS Continue aggressive medical management for primary prevention of CAD, therapeutic lifestyle changes. The patient should followup with cardiology upon discharge. Martha Leblanc MD TRAPPER ANIMAL/TLL /9:29 AM /9:35 AM MTDD
[2017-08-10] MEDS ORDERED: IOHEXOL 350 MG/ML 100 ML BTL (for Cath Lab) OTHER ONE (13:11)
[2017-08-10] MEDS ORDERED: ASPI81TA23 PO (13:55)
[2017-08-10] MEDS ORDERED: ATOR20TA15 PO (13:55)
[2017-08-10] MEDS ORDERED: METO25TA3 PO (13:55)
--- NOTE | 2017-08-10 13:59 | HHI.PR ---
Objective Vital Signs Date Time Temp Pulse Resp B/P (MAP) Pulse Ox O2 Delivery O2 Flow Rate FiO2 08/10/17 11:32 60 16 114/62 (79) 98 08/10/17 08:00 98.0 64 18 105/74 (84) 94 08/10/17 07:32 98.0 64 20 105/74 (84) 94 08/10/17 07:00 60 08/10/17 06:40 59 08/10/17 05:00 62 08/10/17 04:24 97.9 56 88/53 (65) 98 08/10/17 04:00 56 08/10/17 03:00 58 08/10/17 02:00 64 08/10/17 01:00 62 08/10/17 00:00 64 08/10/17 00:00 97.6 71 105/68 (80) 95 08/09/17 23:30 80 08/09/17 23:00 74 08/09/17 20:00 97.8 63 16 105/70 (82) 95 08/09/17 19:40 95 21 08/09/17 16:00 97.5 79 16 123/85 (98) 99 I/O 08/09/17 08/09/17 08/09/17 08/10/17 08/10/17 08/10/17 07:00 15:00 23:00 07:00 15:00 23:00 Intake Total 0 ml 0 ml 480 ml 240 ml Output Total 0 ml Balance 0 ml 0 ml 480 ml 240 ml Intake Oral 0 ml 0 ml 480 ml 240 ml Output Urine Total 0 ml Stool Total 0 ml # Voids 2 2 Result Diagram: 08/08/17191608/09/17 0726 Objective Remarks GENERAL: Patient lying in bed. Appears comfortable. SKIN: Warm and dry. HEAD: Normocephalic. EYES: No scleral icterus. No injection or drainage. NECK: Supple, trachea midline. No JVD. CARDIOVASCULAR: Regular rate and rhythm without murmurs, gallops, or rubs. RESPIRATORY: Breath sounds equal bilaterally. No accessory muscle use. GASTROINTESTINAL: Abdomen soft, non-tender, nondistended. MUSCULOSKELETAL: No cyanosis, or edema. BACK: Nontender without obvious deformity. No CVA tenderness. A/P Assessment and Plan //Chest pain, atypical Patient with increased risk factors to include history tobacco use, family history of heart disease, hyperlipidemia Patient had been ruled out for acute coronary event with serial cardiac enzymes that are negative Serial EKGs were performed which shows sinus rhythm without any changes Patient states that she is unable to perform exercise stress test due to previous CVA, feet problems Nuclear stress test does indicate reversible defect involving the cardiac apex suggesting LAD ischemia. Low risk, ejection fraction 60% Continue aspirin, nitroglycerin as needed Start Lopressor 12.5 mg every 12 hours Start Nitropaste half-inch every 6 hours Consult cardiology for recommendations, discussed with Dr. Santos to recommended patient be transferred to the main hospital for cardiac catheterization Did not recommend heparin at this time = Status post cardiac catheterization with minimal CAD. Continue medical management as recommended by cardiology. Follow with primary care and cardiology as outpatient. //Hyperlipidemia LDL 122 Start Lipitor 20 mg daily //DVT prevention sequential compression devices Discharge Planning Discharge home in good condition. Heart healthy diet. Activity as tolerated. Please see discharge medication reconciliation for medication list. Follow-up with primary care, cardiology. David Juan MD Aug 10, 2017 13:59
== END 2017-08-10 16:10 | disposition home or self-care (01) | DRG 287 ==
LOC: PHED 18:44 → PHEDA 21:05 → PH3A 22:41 → OBSVTOIN 08-09 14:33 → HCIS 08-09 22:44
PROVIDERS: ADMIT Internal Medicine; ATTEND Internal Medicine
PROC: B2111ZZ Fluoroscopy of Multiple Coronary Arteries using Low Osmolar Contrast (ICD-10-PCS; 2017-08-10)
PROC: B41F1ZZ Fluoroscopy of Right Lower Extremity Arteries using Low Osmolar Contrast (ICD-10-PCS; 2017-08-10)
PROC: B2151ZZ Fluoroscopy of Left Heart using Low Osmolar Contrast (ICD-10-PCS; 2017-08-10)
PROC: 4A023N7 Measurement of Cardiac Sampling and Pressure, Left Heart, Percutaneous Approach (ICD-10-PCS; principal; 2017-08-10 08:30)
DX: R07.89 Other chest pain (principal); E78.5 Hyperlipidemia, unspecified; E87.6 Hypokalemia; R73.03 Prediabetes; G89.29 Other chronic pain; M25.519 Pain in unspecified shoulder; I25.10 Atherosclerotic heart disease of native coronary artery without angina pectoris; M19.90 Unspecified osteoarthritis, unspecified site; Z82.49 Family history of ischemic heart disease and other diseases of the circulatory system; Z86.73 Personal history of transient ischemic attack (TIA), and cerebral infarction without residual deficits; Z87.891 Personal history of nicotine dependence; Z88.1 Allergy status to other antibiotic agents
CPT/HCPCS: 70450; 71045; 78452; 80048; 80053; 80061; 84484; 85025; 93005; 93017; 93458; 99152; 99153; A9502; C1760; C1893; G0269; G0378; J0280; J1644; J2250; J2785; J3010; Q9967